=== PATIENT | female | born 1970 | race Caucasian/White ===

== ENCOUNTER → 2016-07-16 | Outpatient (CLI) | payer OTHER ==
[~2016-07-16] MED LIST: TYLOTC500 PO
--- NOTE | 2016-07-16 14:02 | DIAGNOSTIC IMAGING REPORT ---
RIGHT HIP UNILATERAL 2 VIEWS CLINICAL HISTORY: M25.559 Joint pain, hipM25.551 Right hip [id number] Right pain COMPARISON: None. DISCUSSION: Findings consistent with trochanteric bursitis. Mild degenerative narrowing right hip joint space. Mild acetabular sclerosis in a peripheral configuration. There is no evidence for soft tissue swelling. IMPRESSION: 1. Mild calcific trochanteric bursitis. 2. Mild to moderate degenerative change right hip joint space. Electronically signed by: Ashutosh Joseph M.D. 07/16/2016 2:01 PM Dictated Date/Time: 07/16/2016 2:00 PM
== END | disposition home or self-care (01) ==
LOC: C.RAD1850 13:18
PROVIDERS: ATTEND Internal Medicine
DX: M25.551 Pain in right hip (principal)

== ENCOUNTER → 2016-08-19 | Outpatient (CLI) | payer OTHER ==
[~2016-08-19] MED LIST changes: +GADAVIST IV PRN
--- NOTE | 2016-08-19 15:12 | DIAGNOSTIC IMAGING REPORT ---
MRI OF THE LUMBAR SPINE WITH AND WITHOUT CONTRAST CLINICAL HISTORY: Lumbar radiculopathy. COMPARISON STUDY: Lumbar spine radiographs November 06, 2015. TECHNIQUE: Utilizing a 1.5 Nohemy magnet and dedicated coil, multiplanar, multiecho imaging of the lumbar spine was performed before and after uneventful IV administration of 10 mL of Gadavist. FINDINGS: For purposes of numbering on since exam, the L5-S1 disc space is assigned to axial image 23 of 25. Alignment of the lumbar spine is anatomic. Vertebral body heights are maintained. There is no intracanalicular mass or fluid collection. Conus terminates at the mid L1 level. Paravertebral soft tissues are unremarkable. An 8 mm hemangioma is noted within the L4 vertebral body. There are several Schmorl's nodes. L1-2: The central canal and neural foramen are patent. L2-3: The central canal and neural foramen are patent. L3-4: There is mild facet arthrosis. The central canal and neural foramen are patent. L4-5: There is moderate facet arthrosis. Central canal is patent. Ligamentous hypertrophy is present. There is mild narrowing of the bilateral neural foramen. A tiny synovial cyst arises from the posterior aspect of the left facet joint. L5-S1: The central canal and neural foramen are patent. IMPRESSION: 1. No central canal stenosis. Minimal multilevel degenerative disc disease. 2. Moderate multilevel facet arthrosis most pronounced at L4-L5. Mild bilateral neural foraminal stenosis at L4-L5. Electronically signed by: Obdulio Tracey M.D. 08/19/2016 3:11 PM Dictated Date/Time: 08/19/2016 3:05 PM
== END | disposition home or self-care (01) ==
LOC: C.MRI 12:28
PROVIDERS: ATTEND Physician Assistant
DX: M54.16 Radiculopathy, lumbar region (principal)

== ENCOUNTER → 2017-05-05 | Outpatient (CLI) | payer OTHER ==
[~2017-05-05] MED LIST changes: -GADAVIST IV PRN
[2017-05-05 19:07] LABS: HEP C IGG 13 YRS+OLDER_RFLX NEG (NEG)
== END | disposition home or self-care (01) ==
LOC: C.LABSPEC 17:34
PROVIDERS: ATTEND Nurse Practitioner Family
DX: Z77.21 Contact with and (suspected) exposure to potentially hazardous body fluids (principal)

== ENCOUNTER → 2017-06-16 | Outpatient (CLI) | payer OTHER ==
--- NOTE | 2017-06-25 17:06 | CODING QUERY NO DIAGNOSIS ---
TREATMENT RENDERED WITHOUT A DIAGNOSIS 70 To promote full compliance with coding requirements relating to patient care, physician participation is requested in all cases of faculty instructor uncertainty. Please assist us with providing a diagnosis/symptom for the test(s) below: A diagnosis/symptom was not documented on your Order. A valid diagnosis/symptom is required to bill all insurances. Please remember that we are unable to code a diagnosis of rule out, probable, possible, questionable, or suspected. DOS 06/16/17 Tests that require a diagnosis: * HIV DIAGNOSIS: Provider Signature: Date: Thank you [facility] Information [facility] Once completed, please kindly fax back to [phone] For questions please call [phone]
== END | disposition home or self-care (01) ==
LOC: C.MNPGOH 16:49 → C.LABSPEC 16:50
PROVIDERS: ATTEND Nurse Practitioner Family
DX: Z01.89 Encounter for other specified special examinations (principal)

== ENCOUNTER → 2017-06-30 | Outpatient (CLI) | payer OTHER ==
--- NOTE | 2017-06-30 12:06 | DIAGNOSTIC IMAGING REPORT ---
L WRIST MIN 3 VIEWS ROUTINE CLINICAL HISTORY: M25.539 Wrist [id number] COMPARISON: None. DISCUSSION: The bones and joint spaces appear intact. There is no evidence of fracture, dislocation or bony disease. There is no evidence for soft tissue swelling. IMPRESSION: Negative study. The above report was generated using voice recognition software. It may contain grammatical, syntax or spelling errors. Electronically signed by: Ashutosh Joseph M.D. 06/30/2017 12:05 PM Dictated Date/Time: 06/30/2017 12:04 PM
== END | disposition home or self-care (01) ==
LOC: C.RAD1850 11:53
PROVIDERS: ATTEND Internal Medicine
DX: M25.539 Pain in unspecified wrist (principal)

== ENCOUNTER → 2017-07-28 | Outpatient (CLI) | payer OTHER | END | disposition home or self-care (01) | LOC: C.LABSPEC 14:43 | PROVIDERS: ATTEND Nurse Practitioner Family | DX: Z77.21 Contact with and (suspected) exposure to potentially hazardous body fluids (principal) ==

== ENCOUNTER → 2017-10-27 | Outpatient (CLI) | payer OTHER | END | disposition home or self-care (01) | LOC: C.LAB1850 08:54 | PROVIDERS: ATTEND Nurse Practitioner Family | DX: Z77.21 Contact with and (suspected) exposure to potentially hazardous body fluids (principal) ==